=== PATIENT | male | born 1990 | race Caucasian/White ===

== ENCOUNTER 2016-12-12 15:04 | Emergency (ER) | payer OTHER ==
[~2016-12-12] VITALS: Wt 52.0 kg
[2016-12-12] MEDS ORDERED: IBUP-1542 PO (16:20)
--- NOTE | 2016-12-12 16:29 | ERD ---
ER Documentation Chief Complaint Date/Time DATE: 12/12/16 TIME: 16:25 Chief Complaint sore throat and right side neck swelling for a few days, no stridor or sob HPI 26-year-old male complaining of on and off swelling on the right side his neck. Last time it was swollen up was about a month ago, was painful when swallowing at the time. It was also accompanied by cough at that time. Currently, he still feels a small lump on the right side of neck, but without pain. Denies fever or chills. Denies recent weight loss. Denies tobacco use. ROS All systems reviewed and are negative except as per history of present illness. Medications Home Meds Active Scripts Ibuprofen* (Motrin*) 600 Mg Tab, 600 MG PO Q6H Y for PAIN AND OR ELEVATED TEMP, #30 TAB Prov:DONNA GUAJARDO Gian. REGISTERED NURSE CARDIAC 12/12/16 PMhx/Soc Medical and Surgical Hx: pt denies Medical Hx Physical Exam Vitals Vital Signs Date Time Temp Pulse Resp B/P Pulse Ox O2 Delivery O2 Flow Rate FiO2 12/12/16 15:08 97.9 83 20 119/67 97 Physical Exam General impression: Well-developed, well-nourished. Alert, oriented, in no acute distress Head: Normocephalic, atraumatic. ENT: Nasal mucosa, oral mucosa and oropharynx are normal. Neck: Supple, nontender. A approximately 1 cm cervical lymph node noted on the right, nontender. No nuchal rigidity. Respiration: Normal respiratory effort. Lungs clear to auscultate bilaterally. No wheezes, rales or rhonchi. Cardiovascular: Regular rate and rhythm. No murmurs or extra heart sounds. Neuro: Mental status normal, speech normal. Skin: Normal turgor. No rash or lesions. Psych: Normal mood and affect. Procedures/MDM Well-appearing 26-year-old male presented to ED with right cervical lymphadenopathy. I suspect it is residual swelling from recent viral upper respiratory infection. Low suspicion for cancer or lymphoma. However, I asked patient to follow-up with his PCP for further evaluation. Patient appears well , stable for discharge and outpatient management. Medical decision making shared with patient and family. Education provided to patient and family. Patient and family expressed understanding of the plan. Medications on discharge: Ibuprofen. Follow-up: Primary care provider in 2-3 days or return to ED if worse. Departure Diagnosis: Primary Impression: Lymphadenopathy, cervical Condition: Stable Patient Instructions: When Your Child Has Swollen Lymph Nodes Referrals: [facility] YOU HAVE RECEIVED A MEDICAL SCREENING EXAM AND THE RESULTS INDICATE THAT YOU DO NOT HAVE A CONDITION THAT REQUIRES URGENT TREATMENT IN THE EMERGENCY DEPARTMENT. FURTHER EVALUATION AND TREATMENT OF YOUR CONDITION CAN WAIT UNTIL YOU ARE SEEN IN YOUR DOCTORS OFFICE WITHIN THE NEXT 1-2 DAYS. IT IS YOUR RESPONSIBILITY TO MAKE AN APPOINTMENT FOR FOLOW-UP CARE. IF YOU HAVE A PRIMARY DOCTOR --you should call your primary doctor and schedule an appointment IF YOU DO NOT HAVE A PRIMARY DOCTOR YOU CAN CALL OUR PHYSICIAN REFERRAL HOTLINE AT IF YOU CAN NOT AFFORD TO SEE A PHYSICIAN YOU CAN CHOSE FROM THE FOLLOWING [facility] [address] [facility]. [facility] [address] [facility] [facility] [address] [facility] [facility] [address] [facility] [facility] [address] [facility] [facility] [address] Additional Instructions: Call your primary care doctor TOMORROW for an appointment during the next 2-3 days.See the doctor sooner or return here if your condition worsens before your appointment time. DONNA GUAJARDO NP Dec 12, 2016 16:29
== END 2016-12-12 16:46 | disposition home or self-care (01) ==
LOC: E/R 15:04
DX: R59.0 Localized enlarged lymph nodes (principal)
CPT/HCPCS: 99283